=== PATIENT | male | born 1945 | race Caucasian/White ===

== ENCOUNTER 2021-11-26 09:38 | Inpatient (IN) | payer MEDICARE ==
[2021-11-26 10:13] LABS: #Eosinphils 0.2 thou/uL (0.0-0.7); #Monocytes 0.9 thou/uL (0.11-0.59); #Neutrophils 8.4 thou/uL (1.40-6.50); %Basophils 0.2 % (0.0-1.0); %Eosinophils 1.8 % (0.0-10.0); %Lymphocytes 9.8 % (21.0-51.0); %Monocytes 8.6 % (0.0-10.0); %Neutrophils 79.7 % (42.0-75.0); Hemoglobin 12.4 g/dL (14.0-18.0); Mean Corpuscular HGB CONC 31.2 g/dL (32.0-36.0); Mean Corpuscular Hemoglobin 27.6 pg (27.0-31.0); Mean Corpuscular Volume 88.2 fL (78.0-98.0); Platelet Count 389 thou/uL (130-400); RBC Distribution Width 14.9 % (11.5-14.5); Red Blood Cell (RBC) Count 4.51 mill/uL (4.70-6.10); White Blood Cell (WBC) Count 10.6 thou/uL (4.8-10.8)
[2021-11-26 10:34] LABS: ALT (SGPT) 9 U/L (8-55); AST (SGOT) 13 U/L (5-34); Albumin 2.1 g/dL (3.4-4.8); Alkaline Phosphatase 94 U/L (40-110); Anion Gap 12 mmol/L (10-20); BUN (Urea Nitrogen) 38 mg/dL (8.4-25.7); Bilirubin, Total 0.3 mg/dL (0.2-1.2); Calc. Creatinine Clearance 0 mL/min (70-130); Calcium 8.7 mg/dL (7.8-10.44); Carbon Dioxide 27 mmol/L (23-31); Chloride 94 mmol/L (98-107); Globulin 3.8 g/dL (2.4-3.5); Glucose 102 mg/dL (83-110); Potassium 3.2 mmol/L (3.5-5.1); Protein, Total 5.9 g/dL (5.8-8.1); Sodium 130 mmol/L (136-145)
[2021-11-26 15:33] LABS: Bacteria/HPF 3+ HPF (None Seen); Bilirubin Negative (Negative); Blood, Urine Negative (Negative); Clarity Clear (Clear); Glucose, Urine (Dipstick) Normal (Negative); Ketone, Urine Negative (Negative); Leukocyte 75 Leu/uL (Negative); Nitrite Negative (Negative); Protein, Urine (Dipstick) 50 mg/dL (Neg-Trace); RBC/HPF 0-3 HPF (0-3); Specific Gravity, Urine 1.017 (1.002-1.036); Squamous Epithelial 0-3 HPF (0-3); pH, Urine 5.5 (5.0-9.0)
[2021-11-26] MEDS ORDERED: Ondansetron PF 4 MG/2 ML Vial IVP PRN (16:00)
[2021-11-26] MEDS ORDERED: cefTRIAXone\\ROCEPHIN 1 GM in Sodium Chloride 0.9% 100 ML IVPB SCH (16:00)
[2021-11-26] MEDS ORDERED: Acetaminophen 325 MG TAB PO PRN (16:00)
[2021-11-26] MEDS ORDERED: Ondansetron ODT 4 MG TAB SL PRN (16:00)
[2021-11-26] MEDS: Sevelamer Carbonate 800 MG TAB PO SCH (20:40)
[2021-11-26] MEDS: Carvedilol 6.25 MG TAB PO SCH (20:40)
[2021-11-26] MEDS: Heparin 5,000 UNITS/ML VIAL SC SCH (20:40)
[2021-11-26] MEDS: Atorvastatin Calcium 10 MG TAB PO SCH (20:40)
[2021-11-26] MEDS: traZODone HCl 50 MG TAB PO SCH (20:41)
[2021-11-27 07:33] LABS: Anion Gap 17 mmol/L (10-20); BUN (Urea Nitrogen) 44 mg/dL (8.4-25.7); Calc. Creatinine Clearance 11 mL/min (70-130); Calcium 8.4 mg/dL (7.8-10.44); Carbon Dioxide 23 mmol/L (23-31); Chloride 96 mmol/L (98-107); Glucose 66 mg/dL (83-110); Potassium 3.7 mmol/L (3.5-5.1); Sodium 132 mmol/L (136-145)
[2021-11-27 07:37] LABS: #Eosinphils 0.1 thou/uL (0.0-0.7); #Lymphocytes 0.8 thou/uL (1.20-3.40); #Monocytes 0.8 thou/uL (0.11-0.59); #Neutrophils 9.5 thou/uL (1.40-6.50); %Basophils 0.2 % (0.0-1.0); %Eosinophils 1.2 % (0.0-10.0); %Monocytes 6.7 % (0.0-10.0); Hemoglobin 11.6 g/dL (14.0-18.0); Mean Corpuscular HGB CONC 31.8 g/dL (32.0-36.0); Mean Corpuscular Hemoglobin 28.1 pg (27.0-31.0); Mean Corpuscular Volume 88.3 fL (78.0-98.0); Mean Platelet Volume 5.1 fL (7.4-10.4); Platelet Count 343 thou/uL (130-400); RBC Distribution Width 14.8 % (11.5-14.5); Red Blood Cell (RBC) Count 4.14 mill/uL (4.70-6.10); White Blood Cell (WBC) Count 11.2 thou/uL (4.8-10.8)
[2021-11-27] MEDS: Carvedilol 6.25 MG TAB PO SCH ×2 (08:33→20:43)
[2021-11-27] MEDS: Venlafaxine HCl XR 75 MG CAP PO SCH (08:33)
[2021-11-27] MEDS: Bumetanide 1 MG TAB PO SCH (08:33)
[2021-11-27] MEDS: Clopidogrel Bisulfate 75 MG TAB PO SCH (08:33)
[2021-11-27] MEDS: Tamsulosin HCl 0.4 MG CAP PO SCH (08:33)
[2021-11-27] MEDS: Heparin 5,000 UNITS/ML VIAL SC SCH ×3 (08:33→20:43)
[2021-11-27] MEDS: Terazosin HCl 1 MG CAP PO SCH (08:33)
[2021-11-27] MEDS: Sevelamer Carbonate 800 MG TAB PO SCH ×3 (08:33→20:43)
[2021-11-27] MEDS ORDERED: FLU VACC QS2021-22(65YR UP)/PF 240 MCG/0.7 ML SYRINGE IM ONE (09:00)
[2021-11-27 09:53] LABS: BF Color Yellow; Body Fluid Source Dialysate Fluid; Clarity Cloudy/Turbid (Clear); Tube # EDTA
[2021-11-27 10:09] LABS: RBC Count-Automated (BF) 4007 /cu.mm; WBC/Nucleated-Auto (BF) 9652 /cu.mm
[2021-11-27 11:36] LABS: BF Segmented Neutrophils 95 %; Cell Count Non Hematic 4 %; Lymphocytes 1 %
[2021-11-27] MEDS ORDERED: VANCOMYCIN 1.75 GM/350 ML BAG 1.75 GM in Premix Bag 1 BAG IVPB SCH (12:00)
[2021-11-27] MEDS: Micafungin 100 MG in Sodium Chloride 0.9% 100 ML IVPB SCH (14:46)
[2021-11-27 14:47] LABS: Troponin I 0.023 ng/mL (< 0.028)
[2021-11-27] MEDS: cefTRIAXone\\ROCEPHIN 1 GM in Sodium Chloride 0.9% 100 ML IVPB SCH (15:52)
[2021-11-27 17:25] LABS: Troponin I 0.016 ng/mL (< 0.028)
[2021-11-27 19:47] LABS: Troponin I 0.017 ng/mL (< 0.028)
[2021-11-27] MEDS: Atorvastatin Calcium 10 MG TAB PO SCH (20:43)
[2021-11-27] MEDS: traZODone HCl 50 MG TAB PO SCH (20:43)
[2021-11-28 00:35] LABS: Hemoglobin 11.7 g/dL (14.0-18.0)
[2021-11-28 01:18] LABS: HBSAg Index 0.24 S/CO (0-0.99); Hep B Surf Ag Non-Reactive S/CO (NonReactive)
[2021-11-28] MEDS: Ondansetron PF 4 MG/2 ML Vial IVP PRN (02:56)
[2021-11-28 04:33] LABS: #Eosinphils 0.1 thou/uL (0.0-0.7); #Lymphocytes 0.7 thou/uL (1.20-3.40); #Monocytes 0.7 thou/uL (0.11-0.59); #Neutrophils 7.7 thou/uL (1.40-6.50); %Basophils 0.4 % (0.0-1.0); %Eosinophils 1.5 % (0.0-10.0); %Monocytes 7.1 % (0.0-10.0); %Neutrophils 83.1 % (42.0-75.0); Hemoglobin 11.7 g/dL (14.0-18.0); Mean Corpuscular HGB CONC 32.5 g/dL (32.0-36.0); Mean Corpuscular Hemoglobin 28.1 pg (27.0-31.0); Mean Corpuscular Volume 86.5 fL (78.0-98.0); Mean Platelet Volume 5.1 fL (7.4-10.4); Platelet Count 318 thou/uL (130-400); RBC Distribution Width 14.9 % (11.5-14.5); Red Blood Cell (RBC) Count 4.15 mill/uL (4.70-6.10); White Blood Cell (WBC) Count 9.2 thou/uL (4.8-10.8)
[2021-11-28 04:53] LABS: Anion Gap 15 mmol/L (10-20); BUN (Urea Nitrogen) 42 mg/dL (8.4-25.7); Calc. Creatinine Clearance 11 mL/min (70-130); Calcium 8.3 mg/dL (7.8-10.44); Carbon Dioxide 24 mmol/L (23-31); Chloride 96 mmol/L (98-107); Glucose 123 mg/dL (83-110); Magnesium 2.3 mg/dL (1.6-2.6); Potassium 3.2 mmol/L (3.5-5.1); Sodium 132 mmol/L (136-145)
[2021-11-28] MEDS ORDERED: Potassium Chloride 20 MEQ TAB PO SCH (08:30)
[2021-11-28] MEDS: Bumetanide 1 MG TAB PO SCH (10:03)
[2021-11-28] MEDS: Clopidogrel Bisulfate 75 MG TAB PO SCH (10:03)
[2021-11-28] MEDS: Carvedilol 6.25 MG TAB PO SCH ×2 (10:03→22:07)
[2021-11-28] MEDS: Tamsulosin HCl 0.4 MG CAP PO SCH (10:03)
[2021-11-28] MEDS: Terazosin HCl 1 MG CAP PO SCH (10:03)
[2021-11-28] MEDS: Sevelamer Carbonate 800 MG TAB PO SCH ×3 (10:03→22:06)
[2021-11-28] MEDS: Venlafaxine HCl XR 75 MG CAP PO SCH (10:04)
[2021-11-28] MEDS: Heparin 5,000 UNITS/ML VIAL SC SCH ×3 (10:04→22:07)
[2021-11-28 11:36] LABS: Vancomycin, Trough 29.5 ug/mL
[2021-11-28] MEDS ORDERED: Vancomycin 1 GM in Premix Bag 1 BAG IVPB SCH (12:15)
[2021-11-28 15:23] LABS: SARS-CoV-2 PCR by NAA DETECTED (NotDetected)
[2021-11-28] MEDS: Micafungin 100 MG in Sodium Chloride 0.9% 100 ML IVPB SCH (16:12)
[2021-11-28] MEDS: cefTRIAXone\\ROCEPHIN 1 GM in Sodium Chloride 0.9% 100 ML IVPB SCH (17:31)
[2021-11-28] MEDS: Atorvastatin Calcium 10 MG TAB PO SCH (22:06)
[2021-11-28] MEDS: traZODone HCl 50 MG TAB PO SCH (22:06)
[2021-11-29 05:34] LABS: #Lymphocytes 0.9 thou/uL (1.20-3.40); #Monocytes 0.6 thou/uL (0.11-0.59); #Neutrophils 7.8 thou/uL (1.40-6.50); %Basophils 0.1 % (0.0-1.0); %Eosinophils 0.5 % (0.0-10.0); %Lymphocytes 9.4 % (21.0-51.0); %Monocytes 6.7 % (0.0-10.0); %Neutrophils 83.4 % (42.0-75.0); Hemoglobin 12.1 g/dL (14.0-18.0); Mean Corpuscular HGB CONC 31.9 g/dL (32.0-36.0); Mean Corpuscular Hemoglobin 28.2 pg (27.0-31.0); Mean Corpuscular Volume 88.5 fL (78.0-98.0); Mean Platelet Volume 5.3 fL (7.4-10.4); Platelet Count 309 thou/uL (130-400); RBC Distribution Width 14.8 % (11.5-14.5); Red Blood Cell (RBC) Count 4.28 mill/uL (4.70-6.10); White Blood Cell (WBC) Count 9.4 thou/uL (4.8-10.8)
[2021-11-29 06:00] LABS: Anion Gap 18 mmol/L (10-20); BUN (Urea Nitrogen) 43 mg/dL (8.4-25.7); Calc. Creatinine Clearance 11 mL/min (70-130); Calcium 8.5 mg/dL (7.8-10.44); Carbon Dioxide 23 mmol/L (23-31); Chloride 97 mmol/L (98-107); Glucose 98 mg/dL (83-110); Magnesium 2.6 mg/dL (1.6-2.6); Potassium 3.8 mmol/L (3.5-5.1); Sodium 134 mmol/L (136-145)
[2021-11-29] MEDS: Carvedilol 6.25 MG TAB PO SCH ×2 (08:47→21:50)
[2021-11-29] MEDS: Ascorbic Acid 500 mg Chewable Tablet PO SCH (08:47)
[2021-11-29] MEDS: Tamsulosin HCl 0.4 MG CAP PO SCH (08:47)
[2021-11-29] MEDS: Sevelamer Carbonate 800 MG TAB PO SCH ×3 (08:47→22:05)
[2021-11-29] MEDS: Terazosin HCl 1 MG CAP PO SCH (08:47)
[2021-11-29] MEDS: Heparin 5,000 UNITS/ML VIAL SC SCH ×3 (08:47→22:05)
[2021-11-29] MEDS: Bumetanide 1 MG TAB PO SCH (08:47)
[2021-11-29] MEDS: Venlafaxine HCl XR 75 MG CAP PO SCH (08:48)
[2021-11-29] MEDS: Clopidogrel Bisulfate 75 MG TAB PO SCH (08:48)
[2021-11-29] MEDS: Cholecalciferol (Vitamin D3) 400 UNITS TAB PO SCH (08:48)
[2021-11-29] MEDS: Zinc Sulfate 220 MG CAP PO SCH (08:48)
[2021-11-29 11:37] LABS: Vancomycin, Random 26.1 ug/mL (See Comment)
[2021-11-29] MEDS ORDERED: Vancomycin 1 GM in Premix Bag 1 BAG IVPB SCH (12:30)
[2021-11-29] MEDS ORDERED: HOLD VANCOMYCIN FOR LEVEL >20 FS SCH (12:30)
[2021-11-29] MEDS ORDERED: Vancomycin HCl 250 MG in Sodium Chloride 0.9% 100 ML IVPB SCH (12:30)
[2021-11-29] MEDS ORDERED: Vancomycin HCl 750 MG in Sodium Chloride 0.9% 250 ML 250 ML IVPB SCH (12:30)
[2021-11-29] MEDS ORDERED: Vancomycin HCl 500 MG in Sodium Chloride 0.9% 100 ML IVPB SCH (12:30)
[2021-11-29] MEDS: Micafungin 100 MG in Sodium Chloride 0.9% 100 ML IVPB SCH (14:43)
[2021-11-29] MEDS: cefTRIAXone\\ROCEPHIN 1 GM in Sodium Chloride 0.9% 100 ML IVPB SCH (15:29)
[2021-11-29] MEDS ORDERED: ceFAZolin 2 GM/Dextrose 50 ML 2 GM in Premix Bag 1 BAG IVPB SCH (18:00)
[2021-11-29] MEDS: Atorvastatin Calcium 10 MG TAB PO SCH (22:05)
[2021-11-29] MEDS: traZODone HCl 50 MG TAB PO SCH (22:06)
[2021-11-30 05:35] LABS: #Eosinphils 0.2 thou/uL (0.0-0.7); #Lymphocytes 0.9 thou/uL (1.20-3.40); #Monocytes 0.8 thou/uL (0.11-0.59); %Basophils 0.2 % (0.0-1.0); %Eosinophils 2.5 % (0.0-10.0); %Lymphocytes 10.6 % (21.0-51.0); %Monocytes 8.5 % (0.0-10.0); %Neutrophils 78.4 % (42.0-75.0); Hemoglobin 11.7 g/dL (14.0-18.0); Mean Corpuscular HGB CONC 32.2 g/dL (32.0-36.0); Mean Platelet Volume 5.5 fL (7.4-10.4); Platelet Count 273 thou/uL (130-400); RBC Distribution Width 14.8 % (11.5-14.5); Red Blood Cell (RBC) Count 4.17 mill/uL (4.70-6.10); White Blood Cell (WBC) Count 8.9 thou/uL (4.8-10.8)
[2021-11-30 06:00] LABS: Anion Gap 14 mmol/L (10-20); BUN (Urea Nitrogen) 30 mg/dL (8.4-25.7); Calc. Creatinine Clearance 13 mL/min (70-130); Calcium 8.1 mg/dL (7.8-10.44); Carbon Dioxide 26 mmol/L (23-31); Chloride 99 mmol/L (98-107); Glucose 79 mg/dL (83-110); Potassium 3.9 mmol/L (3.5-5.1); Sodium 135 mmol/L (136-145)
[2021-11-30] MEDS: Bumetanide 1 MG TAB PO SCH (07:40)
[2021-11-30] MEDS: Terazosin HCl 1 MG CAP PO SCH (07:40)
[2021-11-30] MEDS: Carvedilol 6.25 MG TAB PO SCH ×2 (07:40→21:32)
[2021-11-30] MEDS: Ascorbic Acid 500 mg Chewable Tablet PO SCH (07:41)
[2021-11-30] MEDS: Tamsulosin HCl 0.4 MG CAP PO SCH (07:41)
[2021-11-30] MEDS: Cholecalciferol (Vitamin D3) 400 UNITS TAB PO SCH (07:41)
[2021-11-30] MEDS: Heparin 5,000 UNITS/ML VIAL SC SCH ×3 (07:41→21:31)
[2021-11-30] MEDS: Venlafaxine HCl XR 75 MG CAP PO SCH (07:41)
[2021-11-30] MEDS: Zinc Sulfate 220 MG CAP PO SCH (07:41)
[2021-11-30] MEDS: Clopidogrel Bisulfate 75 MG TAB PO SCH (07:41)
[2021-11-30] MEDS: Sevelamer Carbonate 800 MG TAB PO SCH ×3 (07:42→21:32)
[2021-11-30 11:13] LABS: Vancomycin, Random 20.9 ug/mL (See Comment)
[2021-11-30] MEDS: Micafungin 100 MG in Sodium Chloride 0.9% 100 ML IVPB SCH (14:07)
[2021-11-30] MEDS: cefTRIAXone\\ROCEPHIN 1 GM in Sodium Chloride 0.9% 100 ML IVPB SCH (15:13)
[2021-11-30] MEDS ORDERED: hydrALAZINE 20 MG/ML VIAL SLOW IVP PRN (15:32)
[2021-11-30] MEDS ORDERED: Fentanyl 100 MCG/2 ML VIAL ONE (17:59)
[2021-11-30] MEDS ORDERED: Propofol 500 MG/50 ML VIAL ONE (18:02)
[2021-11-30] MEDS ORDERED: Sodium Chloride 0.9% 30 ML ONE (18:11)
[2021-11-30] MEDS ORDERED: Xylocaine 1% w/ Epi 1:100K 10 ML VIAL ONE (18:16)
[2021-11-30] MEDS ORDERED: Bupivacaine 0.25% HCL 30 ML VIAL ONE (18:16)
[2021-11-30] MEDS ORDERED: traMADol HCl 50 MG TAB PO PRN (19:06)
[2021-11-30] MEDS ORDERED: Acetaminophen 500 MG TAB PO PRN (19:06)
[2021-11-30] MEDS ORDERED: Lidocaine 1% PF 5 ML VIAL ONE (19:13)
[2021-11-30] MEDS ORDERED: Glycopyrrolate 0.2 MG/ML 5 ML SYRINGE ONE (19:13)
[2021-11-30] MEDS ORDERED: PHENYLEPHRINE-NS 100 MCG/ML 10 ML SYRINGE ONE (19:13)
[2021-11-30] MEDS ORDERED: Ondansetron PF 4 MG/2 ML Vial ONE (19:13)
[2021-11-30] MEDS: Atorvastatin Calcium 10 MG TAB PO SCH (21:32)
[2021-11-30] MEDS: traZODone HCl 50 MG TAB PO SCH (21:32)
[2021-12-01 05:43] LABS: #Eosinphils 0.2 thou/uL (0.0-0.7); #Lymphocytes 0.8 thou/uL (1.20-3.40); #Monocytes 0.6 thou/uL (0.11-0.59); %Basophils 0.2 % (0.0-1.0); %Eosinophils 3.4 % (0.0-10.0); %Lymphocytes 14.9 % (21.0-51.0); %Monocytes 9.9 % (0.0-10.0); %Neutrophils 71.5 % (42.0-75.0); Hemoglobin 11.2 g/dL (14.0-18.0); Mean Corpuscular HGB CONC 32.9 g/dL (32.0-36.0); Mean Corpuscular Volume 88.3 fL (78.0-98.0); Mean Platelet Volume 5.3 fL (7.4-10.4); Platelet Count 247 thou/uL (130-400); RBC Distribution Width 14.6 % (11.5-14.5); Red Blood Cell (RBC) Count 3.85 mill/uL (4.70-6.10); White Blood Cell (WBC) Count 5.6 thou/uL (4.8-10.8)
[2021-12-01 05:59] LABS: Anion Gap 12 mmol/L (10-20); BUN (Urea Nitrogen) 37 mg/dL (8.4-25.7); Calc. Creatinine Clearance 12 mL/min (70-130); Calcium 7.6 mg/dL (7.8-10.44); Carbon Dioxide 27 mmol/L (23-31); Chloride 100 mmol/L (98-107); Glucose 84 mg/dL (83-110); Potassium 3.5 mmol/L (3.5-5.1); Sodium 135 mmol/L (136-145)
[2021-12-01] MEDS ORDERED: Albuterol 200 PUFF (6.7GM INHALER) INH PRN (06:38)
[2021-12-01] MEDS: Heparin 5,000 UNITS/ML VIAL SC SCH ×3 (10:07→21:54)
[2021-12-01] MEDS: Bumetanide 1 MG TAB PO SCH (10:15)
[2021-12-01] MEDS: Terazosin HCl 1 MG CAP PO SCH (10:16)
[2021-12-01] MEDS: Clopidogrel Bisulfate 75 MG TAB PO SCH (10:16)
[2021-12-01] MEDS: Venlafaxine HCl XR 75 MG CAP PO SCH (10:16)
[2021-12-01] MEDS: Zinc Sulfate 220 MG CAP PO SCH (10:16)
[2021-12-01] MEDS: Sevelamer Carbonate 800 MG TAB PO SCH ×3 (10:16→22:09)
[2021-12-01] MEDS: Ascorbic Acid 500 mg Chewable Tablet PO SCH (10:18)
[2021-12-01] MEDS: Cholecalciferol (Vitamin D3) 400 UNITS TAB PO SCH (10:18)
[2021-12-01] MEDS: Carvedilol 6.25 MG TAB PO SCH ×2 (10:18→21:53)
[2021-12-01] MEDS: Tamsulosin HCl 0.4 MG CAP PO SCH (10:18)
[2021-12-01 13:55] LABS: Vancomycin, Random 18.4 ug/mL (See Comment)
[2021-12-01] MEDS: Micafungin 100 MG in Sodium Chloride 0.9% 100 ML IVPB SCH ×2 (13:59→19:21)
[2021-12-01] MEDS: Atorvastatin Calcium 10 MG TAB PO SCH (21:53)
[2021-12-01] MEDS: traZODone HCl 50 MG TAB PO SCH (21:53)
[2021-12-02] MEDS: Ondansetron PF 4 MG/2 ML Vial IVP PRN (04:02)
[2021-12-02 04:51] LABS: Hemoglobin 11.2 g/dL (14.0-18.0); Mean Corpuscular HGB CONC 32.3 g/dL (32.0-36.0); Mean Corpuscular Hemoglobin 28.6 pg (27.0-31.0); Mean Corpuscular Volume 88.4 fL (78.0-98.0); Mean Platelet Volume 5.8 fL (7.4-10.4); Platelet Count 206 thou/uL (130-400)
[2021-12-02 05:14] LABS: Anion Gap 13 mmol/L (10-20); BUN (Urea Nitrogen) 27 mg/dL (8.4-25.7); Calc. Creatinine Clearance 14 mL/min (70-130); Calcium 8.1 mg/dL (7.8-10.44); Carbon Dioxide 29 mmol/L (23-31); Chloride 97 mmol/L (98-107); Glucose 95 mg/dL (83-110); Potassium 3.8 mmol/L (3.5-5.1); Sodium 135 mmol/L (136-145)
[2021-12-02] MEDS: Heparin 5,000 UNITS/ML VIAL SC SCH ×3 (09:16→21:46)
[2021-12-02] MEDS: Bumetanide 1 MG TAB PO SCH (09:16)
[2021-12-02] MEDS: Terazosin HCl 1 MG CAP PO SCH (09:16)
[2021-12-02] MEDS: Zinc Sulfate 220 MG CAP PO SCH (09:17)
[2021-12-02] MEDS: Clopidogrel Bisulfate 75 MG TAB PO SCH (09:17)
[2021-12-02] MEDS: Tamsulosin HCl 0.4 MG CAP PO SCH (09:17)
[2021-12-02] MEDS: Cholecalciferol (Vitamin D3) 400 UNITS TAB PO SCH (09:17)
[2021-12-02] MEDS: Ascorbic Acid 500 mg Chewable Tablet PO SCH (09:17)
[2021-12-02] MEDS: Venlafaxine HCl XR 75 MG CAP PO SCH (09:18)
[2021-12-02] MEDS: Fluconazole 100 MG TAB PO SCH (09:18)
[2021-12-02] MEDS: Sevelamer Carbonate 800 MG TAB PO SCH ×3 (09:32→21:46)
[2021-12-02] MEDS: Carvedilol 6.25 MG TAB PO SCH ×2 (09:32→21:45)
[2021-12-02] MEDS: Atorvastatin Calcium 10 MG TAB PO SCH (21:46)
[2021-12-02] MEDS: traZODone HCl 50 MG TAB PO SCH (21:46)
[2021-12-03 08:04] LABS: Anion Gap 12 mmol/L (10-20); BUN (Urea Nitrogen) 35 mg/dL (8.4-25.7); Calc. Creatinine Clearance 13 mL/min (70-130); Carbon Dioxide 25 mmol/L (23-31); Chloride 102 mmol/L (98-107); Glucose 91 mg/dL (83-110); Potassium 3.4 mmol/L (3.5-5.1); Sodium 136 mmol/L (136-145)
[2021-12-03] MEDS: Heparin 5,000 UNITS/ML VIAL SC SCH ×3 (08:29→21:58)
[2021-12-03] MEDS: Clopidogrel Bisulfate 75 MG TAB PO SCH (08:30)
[2021-12-03] MEDS: Terazosin HCl 1 MG CAP PO SCH (08:30)
[2021-12-03] MEDS: Bumetanide 1 MG TAB PO SCH (08:30)
[2021-12-03] MEDS: Zinc Sulfate 220 MG CAP PO SCH (08:30)
[2021-12-03] MEDS: Venlafaxine HCl XR 75 MG CAP PO SCH (08:30)
[2021-12-03] MEDS: Tamsulosin HCl 0.4 MG CAP PO SCH (08:30)
[2021-12-03] MEDS: Ascorbic Acid 500 mg Chewable Tablet PO SCH (08:30)
[2021-12-03] MEDS: Carvedilol 6.25 MG TAB PO SCH ×2 (08:31→21:58)
[2021-12-03] MEDS: Fluconazole 100 MG TAB PO SCH (08:31)
[2021-12-03] MEDS: Cholecalciferol (Vitamin D3) 400 UNITS TAB PO SCH (08:31)
[2021-12-03 09:33] LABS: Prothrombin Time 13.3 sec (12.0-14.7)
[2021-12-03 09:34] LABS: PTT 38.3 sec (22.9-36.1)
[2021-12-03] MEDS ORDERED: Sodium Bicarbonate 2.5 MEQ/5 ML VIAL ONE (09:57)
[2021-12-03] MEDS ORDERED: Fentanyl 100 MCG/2 ML VIAL ONE (09:58)
[2021-12-03] MEDS: Sevelamer Carbonate 800 MG TAB PO SCH ×2 (12:05→21:58)
[2021-12-03] MEDS ORDERED: Tuberculin PPD 0.1 ML VIAL I-DERMAL SCH (15:00)
[2021-12-03 16:22] LABS: HBCM Index 0.05 S/CO (0-0.79); HBSAg Index 0.25 S/CO (0-0.99); Hep A IgM AB Non-Reactive (NonReactive); Hep A IgM S/CO 0.24 S/CO (0-0.79); Hep B Surf Ag Non-Reactive S/CO (NonReactive); Hep C IgG Ab Non-Reactive (NonReactive); Hep C Index 0.37 S/CO (0-0.79); Hepatitis B Core IgM Abs Non-Reactive (NonReactive)
[2021-12-03] MEDS: Atorvastatin Calcium 10 MG TAB PO SCH (21:58)
[2021-12-03] MEDS: traZODone HCl 50 MG TAB PO SCH (21:59)
[2021-12-04 05:40] LABS: Anion Gap 12 mmol/L (10-20); BUN (Urea Nitrogen) 49 mg/dL (8.4-25.7); Calc. Creatinine Clearance 10 mL/min (70-130); Calcium 7.9 mg/dL (7.8-10.44); Carbon Dioxide 28 mmol/L (23-31); Chloride 98 mmol/L (98-107); Glucose 105 mg/dL (83-110); Potassium 3.7 mmol/L (3.5-5.1); Sodium 134 mmol/L (136-145)
[2021-12-04] MEDS: Heparin 5,000 UNITS/ML VIAL SC SCH ×3 (09:23→20:31)
[2021-12-04] MEDS: Bumetanide 1 MG TAB PO SCH (09:24)
[2021-12-04] MEDS: Carvedilol 6.25 MG TAB PO SCH ×2 (09:24→20:31)
[2021-12-04] MEDS: Clopidogrel Bisulfate 75 MG TAB PO SCH (09:24)
[2021-12-04] MEDS: Lidocaine-Prilocaine 2.5% Cream 5 GM TUBE TOP SCH (13:35)
[2021-12-04] MEDS: Sevelamer Carbonate 800 MG TAB PO SCH ×3 (13:52→20:31)
[2021-12-04] MEDS: Ondansetron PF 4 MG/2 ML Vial IVP PRN (16:06)
[2021-12-04] MEDS: Venlafaxine HCl XR 75 MG CAP PO SCH (16:35)
[2021-12-04] MEDS: Cholecalciferol (Vitamin D3) 400 UNITS TAB PO SCH (16:37)
[2021-12-04] MEDS: Fluconazole 100 MG TAB PO SCH (16:37)
[2021-12-04] MEDS: Ascorbic Acid 500 mg Chewable Tablet PO SCH (16:37)
[2021-12-04] MEDS: Terazosin HCl 1 MG CAP PO SCH (16:38)
[2021-12-04] MEDS: Zinc Sulfate 220 MG CAP PO SCH (16:38)
[2021-12-04] MEDS: traZODone HCl 50 MG TAB PO SCH (20:31)
[2021-12-04] MEDS: Atorvastatin Calcium 10 MG TAB PO SCH (20:31)
[2021-12-05 08:14] LABS: #Eosinphils 0.2 thou/uL (0.0-0.7); #Lymphocytes 1.3 thou/uL (1.20-3.40); #Monocytes 0.5 thou/uL (0.11-0.59); #Neutrophils 2.6 thou/uL (1.40-6.50); %Basophils 0.3 % (0.0-1.0); %Eosinophils 4.3 % (0.0-10.0); %Lymphocytes 28.8 % (21.0-51.0); %Monocytes 10.1 % (0.0-10.0); %Neutrophils 56.5 % (42.0-75.0); Hemoglobin 11.8 g/dL (14.0-18.0); Mean Corpuscular HGB CONC 32.1 g/dL (32.0-36.0); Mean Corpuscular Hemoglobin 28.1 pg (27.0-31.0); Mean Corpuscular Volume 87.3 fL (78.0-98.0); Mean Platelet Volume 6.3 fL (7.4-10.4); Platelet Count 201 thou/uL (130-400); RBC Distribution Width 14.6 % (11.5-14.5); White Blood Cell (WBC) Count 4.6 thou/uL (4.8-10.8)
[2021-12-05] MEDS ORDERED: READ PPD TEST SITE PO SCH (09:00)
[2021-12-05] MEDS: Bumetanide 1 MG TAB PO SCH (10:21)
[2021-12-05] MEDS: Venlafaxine HCl XR 75 MG CAP PO SCH (10:22)
[2021-12-05] MEDS: Zinc Sulfate 220 MG CAP PO SCH (10:22)
[2021-12-05] MEDS: Sevelamer Carbonate 800 MG TAB PO SCH ×3 (10:22→20:37)
[2021-12-05] MEDS: Ascorbic Acid 500 mg Chewable Tablet PO SCH (10:22)
[2021-12-05] MEDS: Fluconazole 100 MG TAB PO SCH (10:23)
[2021-12-05] MEDS: Tamsulosin HCl 0.4 MG CAP PO SCH (10:23)
[2021-12-05] MEDS: Carvedilol 6.25 MG TAB PO SCH ×2 (10:23→20:37)
[2021-12-05] MEDS: Clopidogrel Bisulfate 75 MG TAB PO SCH (10:23)
[2021-12-05] MEDS: Pantoprazole 40 MG VIAL IVP SCH (10:25)
[2021-12-05] MEDS: Cholecalciferol (Vitamin D3) 400 UNITS TAB PO SCH (10:25)
[2021-12-05] MEDS: Heparin 5,000 UNITS/ML VIAL SC SCH ×3 (10:25→20:37)
[2021-12-05] MEDS: Polyethylene Glycol 3350 17 GM Packet PO SCH (10:27)
[2021-12-05] MEDS: Terazosin HCl 1 MG CAP PO SCH (10:39)
[2021-12-05 19:09] LABS: SARS-CoV-2 NAA Rapid Test DETECTED (NotDetected)
[2021-12-05] MEDS: Atorvastatin Calcium 10 MG TAB PO SCH (20:37)
[2021-12-05] MEDS: traZODone HCl 50 MG TAB PO SCH (20:38)
[2021-12-06 05:24] LABS: Anion Gap 15 mmol/L (10-20); BUN (Urea Nitrogen) 54 mg/dL (8.4-25.7); Calc. Creatinine Clearance 9 mL/min (70-130); Calcium 7.6 mg/dL (7.8-10.44); Carbon Dioxide 25 mmol/L (23-31); Chloride 97 mmol/L (98-107); Glucose 77 mg/dL (83-110); Potassium 4.2 mmol/L (3.5-5.1); Sodium 133 mmol/L (136-145)
[2021-12-06 07:22] VITALS: BMI 21.9
[2021-12-06] MEDS: Ascorbic Acid 500 mg Chewable Tablet PO SCH (09:49)
[2021-12-06] MEDS: Sevelamer Carbonate 800 MG TAB PO SCH ×3 (09:49→23:59)
[2021-12-06] MEDS: Carvedilol 6.25 MG TAB PO SCH ×2 (09:49→23:59)
[2021-12-06] MEDS: Terazosin HCl 1 MG CAP PO SCH (09:49)
[2021-12-06] MEDS: Pantoprazole 40 MG VIAL IVP SCH (09:49)
[2021-12-06] MEDS: Venlafaxine HCl XR 75 MG CAP PO SCH (09:50)
[2021-12-06] MEDS: Heparin 5,000 UNITS/ML VIAL SC SCH ×3 (09:50→23:59)
[2021-12-06] MEDS: Fluconazole 100 MG TAB PO SCH (09:50)
[2021-12-06] MEDS: Zinc Sulfate 220 MG CAP PO SCH (09:50)
[2021-12-06] MEDS: Cholecalciferol (Vitamin D3) 400 UNITS TAB PO SCH (09:50)
[2021-12-06] MEDS: Tamsulosin HCl 0.4 MG CAP PO SCH (09:50)
[2021-12-06] MEDS: Clopidogrel Bisulfate 75 MG TAB PO SCH (09:50)
[2021-12-06] MEDS: Polyethylene Glycol 3350 17 GM Packet PO SCH (09:51)
[2021-12-06] MEDS: traZODone HCl 50 MG TAB PO SCH (23:59)
[2021-12-06] MEDS: Atorvastatin Calcium 10 MG TAB PO SCH (23:59)
[2021-12-07] MEDS: Sevelamer Carbonate 800 MG TAB PO SCH ×3 (10:44→21:08)
[2021-12-07] MEDS: Zinc Sulfate 220 MG CAP PO SCH (10:44)
[2021-12-07] MEDS: Ascorbic Acid 500 mg Chewable Tablet PO SCH (10:44)
[2021-12-07] MEDS: Terazosin HCl 1 MG CAP PO SCH (10:44)
[2021-12-07] MEDS: Fluconazole 100 MG TAB PO SCH (10:45)
[2021-12-07] MEDS: Cholecalciferol (Vitamin D3) 400 UNITS TAB PO SCH (10:45)
[2021-12-07] MEDS: Venlafaxine HCl XR 75 MG CAP PO SCH (10:45)
[2021-12-07] MEDS: Carvedilol 6.25 MG TAB PO SCH ×2 (10:46→21:08)
[2021-12-07] MEDS: Clopidogrel Bisulfate 75 MG TAB PO SCH (10:46)
[2021-12-07] MEDS: Polyethylene Glycol 3350 17 GM Packet PO SCH (10:47)
[2021-12-07] MEDS: Heparin 5,000 UNITS/ML VIAL SC SCH ×3 (10:47→21:07)
[2021-12-07] MEDS: Tamsulosin HCl 0.4 MG CAP PO SCH (10:47)
[2021-12-07] MEDS: Atorvastatin Calcium 10 MG TAB PO SCH (21:08)
[2021-12-07] MEDS: traZODone HCl 50 MG TAB PO SCH (21:08)
[2021-12-08] MEDS: Lidocaine-Prilocaine 2.5% Cream 5 GM TUBE TOP SCH (10:00)
[2021-12-08 10:46] LABS: Hemoglobin 10.9 g/dL (14.0-18.0); Mean Corpuscular HGB CONC 32.3 g/dL (32.0-36.0); Mean Corpuscular Hemoglobin 28.1 pg (27.0-31.0); Mean Corpuscular Volume 86.9 fL (78.0-98.0); Mean Platelet Volume 6.6 fL (7.4-10.4); Platelet Count 202 thou/uL (130-400); RBC Distribution Width 14.8 % (11.5-14.5); Red Blood Cell (RBC) Count 3.87 mill/uL (4.70-6.10)
[2021-12-08 10:58] LABS: Anion Gap 11 mmol/L (10-20); BUN (Urea Nitrogen) 36 mg/dL (8.4-25.7); Calc. Creatinine Clearance 11 mL/min (70-130); Calcium 7.6 mg/dL (7.8-10.44); Carbon Dioxide 27 mmol/L (23-31); Chloride 100 mmol/L (98-107); Glucose 97 mg/dL (83-110); Potassium 4.3 mmol/L (3.5-5.1); Sodium 134 mmol/L (136-145)
[2021-12-08 12:31] VITALS: TEMP 97.6
[2021-12-08] MEDS: Carvedilol 6.25 MG TAB PO SCH (14:11)
[2021-12-08] MEDS: Heparin 5,000 UNITS/ML VIAL SC SCH ×2 (14:12→19:47)
[2021-12-08] MEDS: Sevelamer Carbonate 800 MG TAB PO SCH ×2 (14:13→14:17)
[2021-12-08] MEDS: Fluconazole 100 MG TAB PO SCH (14:15)
[2021-12-08] MEDS: Clopidogrel Bisulfate 75 MG TAB PO SCH (14:15)
[2021-12-08] MEDS: Ascorbic Acid 500 mg Chewable Tablet PO SCH (14:15)
[2021-12-08] MEDS: Polyethylene Glycol 3350 17 GM Packet PO SCH (14:15)
[2021-12-08] MEDS: Cholecalciferol (Vitamin D3) 400 UNITS TAB PO SCH (14:15)
[2021-12-08] MEDS: Zinc Sulfate 220 MG CAP PO SCH (14:16)
[2021-12-08 14:17] VITALS: BP 120/83
[2021-12-08] MEDS: Tamsulosin HCl 0.4 MG CAP PO SCH (14:17)
[2021-12-08] MEDS: Terazosin HCl 1 MG CAP PO SCH (14:17)
[2021-12-08] MEDS: Venlafaxine HCl XR 75 MG CAP PO SCH (14:17)
== END 2021-12-08 15:42 | disposition home or self-care (01) | DRG 919 ==
LOC: ERS 09:38 → INTOOBSV 15:37 → T4-B 15:37 → OBSVTOIN 11-27 13:06 → 2NO 11-27 17:36 → 2SW 12-04 14:51
PROVIDERS: ADMIT Internal Medicine; ATTEND Internal Medicine
PROC: 3E1M39Z Irrigation of Peritoneal Cavity using Dialysate, Percutaneous Approach (ICD-10-PCS; 2021-11-27)
PROC: 8E0ZXY6 Isolation (ICD-10-PCS; 2021-11-28)
PROC: 5A1D70Z Performance of Urinary Filtration, Intermittent, Less than 6 Hours Per Day (ICD-10-PCS; 2021-11-29)
PROC: 05H533Z Insertion of Infusion Device into Right Subclavian Vein, Percutaneous Approach (ICD-10-PCS; principal; 2021-11-30)
PROC: B546ZZA Ultrasonography of Right Subclavian Vein, Guidance (ICD-10-PCS; 2021-11-30)
PROC: 0WPGX3Z Removal of Infusion Device from Peritoneal Cavity, External Approach (ICD-10-PCS; 2021-11-30)
DX: T85.71XA Infection and inflammatory reaction due to peritoneal dialysis catheter, initial encounter (principal); U07.1 COVID-19; N18.6 End stage renal disease; K65.8 Other peritonitis; B37.89 Other sites of candidiasis; B37.81 Candidal esophagitis; Q61.3 Polycystic kidney, unspecified; I69.354 Hemiplegia and hemiparesis following cerebral infarction affecting left non-dominant side; I50.22 Chronic systolic (congestive) heart failure; I13.2 Hypertensive heart and chronic kidney disease with heart failure and with stage 5 chronic kidney disease, or end stage renal disease; Y84.1 Kidney dialysis as the cause of abnormal reaction of the patient, or of later complication, without mention of misadventure at the time of the procedure; I25.10 Atherosclerotic heart disease of native coronary artery without angina pectoris; E78.5 Hyperlipidemia, unspecified; N40.0 Benign prostatic hyperplasia without lower urinary tract symptoms; K52.89 Other specified noninfective gastroenteritis and colitis; E87.6 Hypokalemia; K59.09 Other constipation; R94.31 Abnormal electrocardiogram [ECG] [EKG]; K21.9 Gastro-esophageal reflux disease without esophagitis; R13.19 Other dysphagia; I73.9 Peripheral vascular disease, unspecified; Z28.21 Immunization not carried out because of patient refusal; Z99.2 Dependence on renal dialysis; Z95.1 Presence of aortocoronary bypass graft; Z88.8 Allergy status to other drugs, medicaments and biological substances; Z79.899 Other long term (current) drug therapy; Z79.02 Long term (current) use of antithrombotics/antiplatelets; Z90.49 Acquired absence of other specified parts of digestive tract; Z80.9 Family history of malignant neoplasm, unspecified; Z81.1 Family history of alcohol abuse and dependence
CPT/HCPCS: 36415; 36416; 70450; 71045; 74018; 74176; 76380; 80048; 80053; 80074; 80202; 81003; 81015; 83690; 83735; 84443; 84484; 85025; 85027; 85060; 85610; 85730; 86140; 86580; 87070; 87205; 87340; 89051; 90935; 90945; 93005; 93010; 93306; 96372; 96374; C1751; C9113; G0257; G0378; J0360; J0696; J1644; J2248; J2405; J2704; J3010; J3370; J3490; S0020; U0002; U0003; U0005